=== PATIENT | female | born 1960 | race Caucasian/White ===

== ENCOUNTER 2021-07-18 16:10 | Emergency (ER) | payer SELFPAY ==
--- NOTE | 2021-07-18 17:28 | RAD REPORT ---
EXAM DESCRIPTION: RAD - Forearm Right - 07/18/2021 5:23 pm CLINICAL HISTORY: PAIN COMPARISON: No comparisons FINDINGS: Distal radial impaction fracture. No definite intra-articular extension. No significant di splacement. No other fractures are seen. IMPRESSION: Distal radial impaction fracture without definite intra-articular involvement.
--- NOTE | 2021-07-18 18:08 | ER ---
Nurse's Notes [facility] Name: Flory Coffman Age: 61 yrs Sex: Female : 1960 Arrival Date: 07/18/2021 Time: 16:14 Bed 30 Private MD: Diagnosis: Distal Radius fracture Presentation: 07/18 16:20 Chief complaint: Chief complaint: Patient states: R wrist pain after falling yesterday ss evening. 16:20 Acuity: ROCKY 4 ss 16:22 Coronavirus screen: Client denies travel out of the [place] in the last 14 days. Ebola ss Screen: Patient denies exposure to infectious person. Patient denies travel to an Ebola-affected area in the 21 days before illness onset. Initial Sepsis Screen: Does the patient meet any 2 criteria? No. Patient's initial sepsis screen is negative. Does the patient have a suspected source of infection? No. Patient's initial sepsis screen is negative. Risk Assessment: Do you want to hurt yourself or someone else? Patient reports no desire to harm self or others. Onset of symptoms was July 17, 2021. 16:22 Method Of Arrival: Wheelchair ss Triage Assessment: 18:07 General: Appears uncomfortable, Behavior is cooperative, appropriate for age. oh Historical: - Allergies: 16:22 Morphine; ss 16:22 Motrin; ss - PMHx: 16:22 Diabetes - NIDDM; High Cholesterol; Hypertension; ss - Immunization history:: Client reports having NOT received the Covid vaccine. - Social history:: Smoking status: Patient/guardian denies using tobacco, the patient reports quitting approximately 1.5 years ago. Screenin:07 Abuse screen: Denies threats or abuse. Nutritional screening: No deficits noted. oh Tuberculosis screening: No symptoms or risk factors identified. Fall Risk Fall in past 12 months (25 points). Assessment: 18:06 Pain: Complains of pain in right arm and right forearm. Injury Description: pain to oh right forearm, after falling. swelling noted. Vital Signs: 16:20 BP 138 / 65; Pulse 118; Resp 17; Temp 97.2(TE); Pulse Ox 99% on R/A; Weight 70.76 kg; ss Height 5 ft. 5 in. (165.10 cm); Pain 9/10; 18:08 BP 129 / 57; Pulse 110; Resp 17; Pulse Ox 98% on R/A; oh 16:20 Body Mass Index 25.96 (70.76 kg, 165.10 cm) ED Course: 16:14 Patient arrived in ED. ds1 16:21 Triage completed. ss 16:22 [facility]C [facility]. kb 16:22 Arm band placed on left wrist. ss 16:23 Jose Bah MD is Attending Physician. kb 16:37 Migel Collins, RN is Primary Nurse. oh 17:23 Forearm Right XRAY In Process Unspecified. EDMS 18:05 Sling applied to right arm. splint. oh 18:07 Bed in low position. Call light in reach. oh 18:08 No provider procedures requiring assistance completed. oh 18:35 Patient did not have IV access during this emergency room visit. oh 19:30 Primary Nurse role handed off by Migel Collins, RN apple Administered Medications: 17:57 Drug: [place] (HYDROcodone-acetaminophen) (7.5 mg-325 mg) 1 tabs Route: PO; oh Outcome: 18:07 Discharge ordered by . kb 18:34 Discharged to home ambulatory, with friend. oh 18:34 Condition: stable 18:34 Discharge instructions given to patient, friend. 18:59 Patient left the ED. iw 19:30 Patient left the ED. kb Signatures: Dispatcher [employer] EDNC Jeannette Ramos FNP-C FNP-Leeann VictorNedra bass ds1 Carrie Sabillon RN RN Sissy Thornton RN RN Migel Collins, RN RN oh Corrections: (The following items were deleted from the chart) 16:23 16:20 Chief complaint: [facility]
--- NOTE | 2021-07-18 18:08 | EDPHYS ---
Physician Documentation [facility] Name: Flory Coffman Age: 61 yrs Sex: Female : 1960 Arrival Date: 07/18/2021 Time: 16:14 Bed 30 Private MD: ED Physician Jose Bah HPI: 07/18 16:31 This 61 yrs old Female presents to ER via Wheelchair with complaints of Fall kb Injury - wrist injury. 16:31 Details of fall: The patient fell from an upright position, while walking. Onset: The kb symptoms/episode began/occurred yesterday. Associated injuries: The patient sustained right forearm, painful injury, swelling. Severity of symptoms: At their worst the symptoms were mild, in the emergency department the symptoms are unchanged. The patient has not experienced similar symptoms in the past. The patient has not recently seen a physician. Pt reports she was packing and tripped over a chord. States she fell on outstretched hand. c/o pain to right forearm. Historical: - Allergies: 16:22 Morphine; ss 16:22 Motrin; ss - PMHx: 16:22 Diabetes - NIDDM; High Cholesterol; Hypertension; ss - Immunization history:: Client reports having NOT received the Covid vaccine. - Social history:: Smoking status: Patient/guardian denies using tobacco, the patient reports quitting approximately 1.5 years ago. ROS: 16:30 Constitutional: Negative for fever, chills, and weight loss. kb 16:30 MS/extremity: Positive for pain, swelling, tenderness, of the right forearm. 16:30 All other systems are negative. Exam: 16:30 Constitutional: This is a well developed, well nourished patient who is awake, alert, kb and in no acute distress. Head/Face: Normocephalic, atraumatic. ENT: Moist Mucous membranes Respiratory: Respirations even and unlabored. No increased work of breathing, no retractions or nasal flaring. Skin: Warm, dry with normal turgor. Normal color. Neuro: Awake and alert, GCS 15, oriented to person, place, time, and situation. Moves all extremities. Normal gait. Psych: Awake, alert, with orientation to person, place and time. Behavior, mood, and affect are within normal limits. 16:30 Musculoskeletal/extremity: Extremities: grossly normal except: noted in the right forearm: pain, swelling, tenderness, ROM: intact in all extremities, Circulation is intact in all extremities. Sensation intact. Vital Signs: 16:20 BP 138 / 65; Pulse 118; Resp 17; Temp 97.2(TE); Pulse Ox 99% on R/A; Weight 70.76 kg; ss Height 5 ft. 5 in. (165.10 cm); Pain 9/10; 18:08 BP 129 / 57; Pulse 110; Resp 17; Pulse Ox 98% on R/A; oh 16:20 Body Mass Index 25.96 (70.76 kg, 165.10 cm) ss Procedures: 18:06 Splinting: Splint applied to right forearm using Orthoglass splint, applied by tech. kb Examined by me, post splint application: neurovascular intact, 2+ distal pulses palpable, Patient tolerated well. MDM: 16:23 Patient medically screened. kb 16:30 Data reviewed: vital signs, nurses notes. Data interpreted: Pulse oximetry: on room air kb is 99 %. Interpretation: normal. 17:31 Counseling: I had a detailed discussion with the patient and/or guardian regarding: the kb historical points, exam findings, and any diagnostic results supporting the discharge/admit diagnosis, radiology results, the need for outpatient follow up, a orthopedic surgeon, to return to the emergency department if symptoms worsen or persist or if there are any questions or concerns that arise at home. 07/18 16:29 Order name: Forearm Right XRAY; Complete Time: 17:31 kb 07/18 17:32 Order name: [place] Forearm Splint; Complete Time: 18:05 kb 07/18 17:32 Order name: Sling; Complete Time: 18:05 kb Administered Medications: 17:57 Drug: [place] (HYDROcodone-acetaminophen) (7.5 mg-325 mg) 1 tabs Route: PO; oh Disposition: 22:53 Co-signature as Attending Physician, Jose Bah MD I agree with the assessment and kdr plan of care. Disposition Summary: 07/18/21 18:07 Discharge Ordered Location: Home kb Condition: Stable kb Diagnosis - Distal Radius fracture kb Followup: kb - With: Emergency Department - When: As needed - Reason: Worsening of condition Followup: kb - With: Private Physician - When: 2 - 3 days - Reason: Recheck today's complaints, Continuance of care, Re-evaluation by your physician Discharge Instructions: - Discharge Summary Sheet kb - Radial Fracture kb Forms: - Medication Reconciliation Form kb - Thank You Letter kb - Antibiotic Education kb - Prescription Opioid Use kb Signatures: Dispatcher [employer] EDJeannette Sloan, CARLOS-C CARLOS-Jose Unger MD MD kdr Smirch, Shelby, RN RN Migel Collins RN RN oh
[2021-07-18] MEDS ORDERED: HYDROCODONE/APAP 7.5/325 MG TAB ONE (18:21)
[2021-07-18 19:05] VITALS: TEMP 97.2
[2021-07-18 19:06] VITALS: BP 129/57; O2SAT 98
== END 2021-07-18 19:30 | disposition home or self-care (01) ==
LOC: ER 16:10
PROC: 2W3CX1Z Immobilization of Right Lower Arm using Splint (ICD-10-PCS; principal; 2021-07-18)
DX: S52.501A Unspecified fracture of the lower end of right radius, initial encounter for closed fracture (principal); W01.0XXA Fall on same level from slipping, tripping and stumbling without subsequent striking against object, initial encounter; Y93.89 Activity, other specified; Z88.5 Allergy status to narcotic agent; Z88.6 Allergy status to analgesic agent; I10 Essential (primary) hypertension
CPT/HCPCS: 99283